=== PATIENT | male | born 1980 | race Caucasian/White ===

== ENCOUNTER 2017-04-15 02:20 | Inpatient (IN) | payer OTHER ==
[2017-04-15] MEDS ORDERED: OLANZapine DISINTEGR 5 MG TAB PO ONE (02:33)
--- NOTE | 2017-04-15 02:37 | EDPHY ---
H & P Source: Patient, Police HPI/ROS: HPI CHIEF COMPLAINT: Abigail, acute psychosis, M1 hold by police HISTORY OF PRESENT ILLNESS: This patient 36-year-old male significant past medical history for depression, on Zoloft, questionable history of bipolar, presents emergency room on M1 hold by police. The police were called to his residence multiple times they believe 4 times this evening for various calls. Girlfriend called 911 multiple times as he has been acting erratically with pressured speech and per the girlfriend spending large amounts of money applying random plane tickets. Upon arrival here the patient is hyper zoroastrian. He speaking with pressured speech and very fast. He states Love to all. He does not want hurt himself or anybody else. He admits to smoking cigarettes today as well as having 2 beers. Otherwise denies any other ingestions. Or drugs. Past Medical History: Depression Past Surgical History: No recent surgery Social History: Tobacco use, occasional alcohol use Family History: Noncontributory ROS REVIEW OF SYSTEMS: A comprehensive 10 point review of systems is otherwise negative aside from elements mentioned in the history of present illness. Exam Constitutional triage nursing summary reviewed, vital signs reviewed, awake/ alert. Eyes normal conjunctivae and sclera, EOMI, PERRLA. HENT normal inspection, atraumatic, moist mucus membranes, no epistaxis, neck supple/ no meningismus, no raccoon eyes. Respiratory clear to auscultation bilaterally, normal breath sounds, no respiratory distress, no wheezing. Cardiovascular rate normal, regular rhythm, no murmur, no edema, distal pulses normal. Gastrointestinal soft, non-tender, no rebound, no guarding, normal bowel sounds, no distension, no pulsatile mass. Genitourinary no CVA tenderness. Musculoskeletal no midline vertebral tenderness, full range of motion, no calf swelling, no tenderness of extremities, no meningismus, good pulses, neurovascularly intact. Skin pink, warm, & dry, no rash, skin atraumatic. Neurologic awake, alert and oriented x 3, AAOx3, moves all 4 extremities equally, motor intact, sensory intact, CN II-XII intact, normal cerebellar, normal vision, normal speech. Psychiatric acutely psychotic, pressured speech, grandiose, happy. Heme/Lymph/Immune no lymphadenopathy. Differential Diagnosis: Includes but is not limited to in a particular order acute psychosis, abigail, drug intoxication Medical Decision Making: Plan for this patient blood draw for medical clearance , oral Zyprexa 5 mg, will need mental health evaluation. Patient placed on M1 hold by police. Re-evaluation: (Richard Johnson) Constitutional: Initial Vital Signs Temperature (C) 36.8 C 04/15/17 02:25 Heart Rate 80 04/15/17 02:25 Respiratory Rate 18 04/15/17 02:25 Blood Pressure 140/78 H 04/15/17 02:25 O2 Sat (%) 95 04/15/17 02:25 O2 Delivery Mode Room Air Allergies/Adverse Reactions: Penicillins Allergy (Verified 04/15/17 02:59) Home Medications: Medication Instructions Recorded Sertraline HCl [Zoloft 25mg (*)] 25 mg PO DAILY 04/15/17 Medical Decision Making ED Course/Re-evaluation: 8:00 a.m. the patient has been evaluated by Mental Health. He has been accepted at [address] [place] [address] they would like to give him Zyprexa and Ativan in order to attempt to stabilize him so that he can be transferred there. (Juan Dorado) - Data Points Laboratory Results: Laboratory Results 04/15/17 02:45 04/15/17 02:45 Medications Given: Olanzapine (Zyprexa Zydis) 10 mg PO HS KARIN Stop: 10/12/17 20:59 Last Admin: 04/15/17 20:42 Dose: Not Given Discontinued Medications Haloperidol Lactate (Haldol Injection) 10 mg IVP EDNOW ONE Stop: 04/15/17 12:50 Last Admin: 04/15/17 13:05 Dose: Not Given Lorazepam (Ativan) 2 mg PO EDNOW ONE Stop: 04/15/17 08:30 Last Admin: 04/15/17 08:34 Dose: 2 mg Olanzapine (Zyprexa Zydis) 5 mg PO EDNOW ONE Stop: 04/15/17 02:34 Last Admin: 04/15/17 07:37 Dose: 5 mg Departure - Departure Disposition: [facility] IP Clinical Impression: Manic behavior Condition: Fair
[2017-04-15 02:57] LABS: % IMMATURE GRANULYOCYTES 0.4 % (0.0-1.1); ABSOLUTE IMMATURE GRANULOCYTES 0.03 10^3/uL (0.00-0.10); ADD DIFF? NO; ADD MORPH? NO; ADD SCAN? NO; ATYPICAL LYMPHOCYTE FLAG 10 (0-99); FRAGMENT RBC FLAG 0 (0-99); HEMATOCRIT 43.1 % (40.0-51.0); LEFT SHIFT FLG 0 (0-99); LIPEMIA HEMOLYSIS FLAG 90 (0-99); MEAN CELL HEMOGLOBIN 31.8 pg (27.9-34.1); MEAN CELL HEMOGLOBIN CONCENTR. 34.8 g/dL (32.4-36.7); MEAN CELL VOLUME 91.3 fL (81.5-99.8); MEAN PLATELET VOLUME 11.3 fL (8.7-11.7); PLATELET CLUMPS FLAG 0 (0-99); PLATELET COUNT 237 10^3/uL (150-400); RED BLOOD CELL COUNT 4.72 10^6/uL (4.40-6.38)
[2017-04-15 03:13] LABS: ANION GAP 15 mEq/L (8-16); CALCIUM 9.7 mg/dL (8.5-10.4); CARBON DIOXIDE 22 mEq/l (22-31); CHLORIDE 106 mEq/L (97-110); CREATININE 0.8 mg/dL (0.7-1.3); ETHANOL SERUM < 10 mg/dL (0-10); GLOMERULAR FILTRATION RATE > 60; GLUCOSE 100 mg/dL (70-100); POTASSIUM 3.9 mEq/L (3.5-5.2); SALICYLATE < 1.0 mg/dL (2.0-20.0); SODIUM 143 mEq/L (134-144)
[2017-04-15] MEDS ORDERED: OLANZapine DISINTEGR 5 MG TAB ONE (07:26)
[2017-04-15] MEDS ORDERED: LORazepam 1 MG TAB PO ONE (08:29)
[2017-04-15] MEDS ORDERED: HALOPERIDOL LACT 5 MG/ML INJ IVP ONE (12:49)
[2017-04-15] MEDS ORDERED: NICOTINE POLACRILEX 2 MG GUM B PRN (16:23)
[2017-04-15] MEDS ORDERED: MAG HYDROX/AL HYDROX/SIMETH 30 ML UDCUP PO PRN (16:23)
[2017-04-15] MEDS: OLANZapine DISINTEGR 10 MG TAB PO SCH (20:42)
--- NOTE | 2017-04-16 14:18 | BCON ---
[f rep st] BEHAVIORAL HEALTH CONSULTATION INTERNAL MEDICINE CONSULTATION DATE OF CONSULTATION: 04/16/2017 REFERRING PHYSICIAN: Saulo Bahena MD REASON FOR REFERRAL: Medical clearance for inpatient behavioral health stay. HISTORY OF PRESENT ILLNESS: This patient was brought to the [facility] Emergency Department by police on an M1 hold. His girlfriend had called 911 multiple times, reporting that he had been acting erratically with pressured speech and spending large amounts of money. In the emergency room, he was found to have hyperreligious thought content and pressured speech. He was evaluated by the mental health team and admitted for further psychiatric care. He is currently without acute complaints. He wants me to speak to his lightout examiner before examining him, and ultimately declines the examination. PAST MEDICAL HISTORY: 1. Depression. 2. Right rotator cuff surgery. 3. Left shoulder labral tear. MEDICATIONS: He was prescribed sertraline. ALLERGIES: Listed to penicillin. SOCIAL HISTORY: He lives with his girlfriend. He is a nonsmoker. He uses alcohol. His urine tox screen was positive for marijuana. FAMILY HISTORY: Cocaine abuse in his sister. REVIEW OF SYSTEMS: Very limited. He denied any acute medical concerns. PHYSICAL EXAM: Very limited. VITAL SIGNS: Blood pressure is 123/69, heart rate is 74, respiratory rate is 16, oxygen saturation is 97% on room air, temperature is 36.7 degrees centigrade. His weight is 77.1 kg, for a body mass index of 22.4. GENERAL: This is a well-nourished, well-developed man, appears his chronologic age, sitting cross-legged on the bed, minimally cooperative, in no acute distress. HEENT: Extraocular movements are intact. Mucous membranes are moist. NECK: Supple. CARDIOVASCULAR: Could not be conducted. RESPIRATORY: He is not tachypneic. He is not coughing. He is not using any accessory muscles. ABDOMEN: Could not be conducted. EXTREMITIES: There is no obvious cyanosis, clubbing, or edema. NEUROLOGIC: Orientation could not be determined. Cranial nerves 2-12 are grossly intact. He moves all extremities and he has a normal gait. He has psychomotor agitation. LABORATORY STUDIES: Drawn in the emergency department, CBC was overall within normal limits. He had a relative decrement of eosinophils and basophils of no clinical significance. Serum chemistry revealed completely normal renal function and electrolytes. Toxicology screen in the serum was negative for salicylates, acetaminophen and ethyl alcohol. In the urine, it was non- negative for marijuana but was otherwise negative for substances of abuse. ASSESSMENT/RECOMMENDATIONS: 1. Mental health issues pending further evaluation and management per Psychiatry and the mental health team. 2. Grossly normal exam, uncooperative with any more detailed examination. I see no medical contraindications to this patient's continued stay on the inpatient behavioral health unit or to any psychiatric medications or procedures. Thank you very much for including me in the care of this patient, and please do not hesitate to contact me should there be need for any further medical evaluation, which may be more possible to do after psychiatric stabilization. /[id number]/MODL MTDD
[2017-04-16] MEDS: OLANZapine DISINTEGR 10 MG TAB PO SCH (21:24)
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
[2017-04-17] MEDS ORDERED: OLANZapine 10 MG/2 ML VIAL IM PRN (14:38)
[2017-04-17] MEDS ORDERED: LORazepam 2 MG/ML INJ IM PRN (14:38)
--- NOTE | 2017-04-17 15:03 | SOAPPROG ---
SOAP Progress Note Assessment/Plan: Assessment: Plan: 04/17/17 15:05 Remains manic, psychotic, threatening. Unable to safely curb agitation with verbal redirection and show of force. Attempts by family to calm pt led to escalation based on extreme irritability and paranoia. Proceeded with [facility]. Will monitor. [facility] and COM letter completed, sent. Subjective: Pt seen, discussed with staff. Events of last night reviewed inc: pt ordering $ 200 worth of pizza and not being able to pay for it as his card was declined. He insists today that "I was just doing that to buy off the staff so they won't hate me any more." I tried to discuss the impulsive and irrational nature of these behaviors and thoughts, but pt is unable to listen, talking over me consistently. I then tried to discuss pt's treatment plan including medication treatment with Zyprexa to address his acute abigail. He becomes enraged stating, "You're just saying that because I'm a Hinduism." Denies any mental illness and refuses to consider mediations. I then tried to review the STC process with him and told him I would seek COM. He refused to participate in this discussion and shouted over me telling me I would go to halfway if I gave him any meds. I reiterated to him that we would only give him medications against his will if could not conform his behaviors safely. I then worked with staff to create a phone restriction due to PCP calling repeatedly to tell us that pt was calling their office and threatening people there. Collateral information obtained from sisters and GF who attempted to visit pt but were verbally attacked by him and ordered to leave the unit. He states to me and loudly to all that he believes they are trying to harm him and control him and that they don't love him. They tell me that this is very unusual for him to behave this way. They state that he has never acted like this before. His sister who lives in [place] reports that pt visited her two weeks ago and "was not himself." She states he was labile and angry and that she has never seem him display anger before. GF states she noted a major escalation when pt increased sertraline to 50mg. She states this made him more erratic and more irritable. He refused to stop it, however, stating he believed it helped him. Pt told me today that I am "committing a hate crime" by not giving him the sertraline. He placed a chair outside my office this morning and began yelling through my door that he wanted to meet with me despite me having told him I would meet with him at 1030. He began swearing and calling me "Dr. Pitts." This continued until security was able to redirect him to his room. I then met with him as scheduled and he was very agitated, swearing and threatening to rohan me. Continued to accuse me of committing a hate crime against him because he was Oriental Orthodox and "I know you're just a controlling Islam." He repeated the statement that "You sent a Hinduism in to see me who wasn't compassionate. How dare you!" many times. Later in the afternoon he continued to escalate, threatening staff and disrupting the milieu. Other patients began to get agitated as well, necessitating E-meds. Objective: Vital Signs Temp Pulse Resp BP Pulse Ox 36.7 C 74 16 123/69 H 97 04/15/17 13:33 04/15/17 13:33 04/15/17 13:33 04/15/17 13:33 04/15/17 13:33 MSE: Marginally groomed, agitated, angry. Shouting, swearing, calling me and staff names. Threatening to rohan over any interaction. Makes several abrupt lurches towards me when I was sitting in his room trying to conduct an interview causing me to terminate contact due to fear of assault. Security called to monitor. Affect is angry, labile. Mood is "terrible." TP tangential , perseverative on persecutory themes. TC reveals grandiose and paranoid thoughts. - Time Spent With Patient Time Spent With Patient: 55" ICD10 Worksheet Patient Problems: Problems Problem Status Onset Manic behavior Acute
[2017-04-17] MEDS: OLANZapine DISINTEGR 10 MG TAB PO PRN (15:38)
[2017-04-17] MEDS: LORazepam 1 MG TAB PO PRN (15:39)
[2017-04-17] MEDS: OLANZapine DISINTEGR 10 MG TAB PO SCH (21:51)
[2017-04-18] MEDS ORDERED: fentaNYL 100 MCG/2 ML INJ ONE (10:06)
[2017-04-18] MEDS ORDERED: MIDAZOLAM 2 MG/2 ML VIAL ONE (10:06)
[2017-04-18] MEDS: OLANZapine DISINTEGR 10 MG TAB PO PRN (10:43)
[2017-04-18] MEDS: LORazepam 1 MG TAB PO PRN (10:43)
--- NOTE | 2017-04-18 14:38 | SOAPPROG ---
SOAP Progress Note Assessment/Plan: Assessment: Plan: 04/17/17 15:05 Remains manic, psychotic, threatening. Unable to safely curb agitation with verbal redirection and show of force. Attempts by family to calm pt led to escalation based on extreme irritability and paranoia. Proceeded with [facility]. Will monitor. [facility] and COM letter completed, sent. 04/18/17 15:06 Remains manic, psychotic, disruptive, threatening. Will continue to offer voluntary meds. COM letter sent. Will employ E-meds as needed. His overall level of disruption presents an ongoing risk to himself and others and may require emergency intervention of the milieu continues to escalate based on his behaviors. Subjective: Pt seen, discussed with staff. Email received from pt's sister Tess requesting FMLA be completed. Pt remains agitated, labile, intrusive, profane, insulting, disruptive and inciting of other patients. He has elevated the level of negative emotion in the milieu to a potentially dangerous level and at least two other patients have demonstrated disregulated and aggressive behaviors because of this. He continues to lack any insight into his illness. He perseverates on persecutory themes. Continues to accost me, yelling insulting names down the collier. Stood outside the door to our treatment planning room shouting insults until he was redirected. Stood within six inches of my face in the hallway stating, "Go ahead and touch me, I'll put you in correction." Objective: Vital Signs Temp Pulse Resp BP Pulse Ox 36.4 C 110 H 14 155/68 H 96 04/18/17 06:00 04/18/17 06:00 04/18/17 06:00 04/18/17 06:00 04/18/17 06:00 MSE: Agitated, pressured, intrusive, uncooperative. Affect is irritable, labile, crying at times, laughing at others, raging at others (predominant.) Mood is "terrible." TP tangential, unable to stay on topic of conversation for any meaningful length of time. TC reveals continued persecutory delusions. Continues to place others including myself in reasonable fear of harm. - Time Spent With Patient Time Spent With Patient: 25" ICD10 Worksheet Patient Problems: Problems Problem Status Onset Manic behavior Acute
[2017-04-18] MEDS: OLANZapine DISINTEGR 10 MG TAB PO SCH (21:04)
[2017-04-18] MEDS: ACETAMINOPHEN 325 MG TAB PO PRN (22:07)
[2017-04-19] MEDS: OLANZapine DISINTEGR 10 MG TAB PO PRN (09:28)
[2017-04-19] MEDS: LORazepam 1 MG TAB PO PRN ×2 (10:48→23:11)
[2017-04-19] MEDS ORDERED: OLANZapine 10 MG/2 ML VIAL IM PRN (11:21)
[2017-04-19] MEDS ORDERED: OLANZapine DISINTEGR 10 MG TAB PO ONE (11:23)
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
[2017-04-19] MEDS: OLANZapine DISINTEGR 10 MG TAB PO SCH (20:58)
[2017-04-20] MEDS: OLANZapine DISINTEGR 10 MG TAB PO PRN ×2 (07:57→11:38)
[2017-04-20] MEDS: LORazepam 1 MG TAB PO PRN ×2 (07:59→11:37)
[2017-04-20] MEDS: OLANZapine DISINTEGR 10 MG TAB PO SCH (19:42)
[2017-04-20] MEDS ORDERED: BACITRACIN OINTMENT 1 PACKET TP ONE (19:56)
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
[2017-04-20] MEDS: ACETAMINOPHEN 325 MG TAB PO PRN (20:53)
[2017-04-21] MEDS: OLANZapine DISINTEGR 10 MG TAB PO PRN (05:54)
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
--- NOTE | 2017-04-21 14:15 | SOAPPROG ---
SOAP Progress Note Assessment/Plan: Assessment: * Risk for STD. Urine and serum tests have been ordered appropriately. Will add HSV 1 & 2 antibody testing as patient is concerned re Herpes as well. * Foot pain. R foot XR has been done, wnl. Currently complains of L footpain but has normal gait. Observe for worsening, or resolution as his psychiatric state stabilizes. No further evaluation at present. 04/21/17 14:13 Subjective: Follow-up on R foot pain. Patient also c/o skin lesion on scrotum and is worried about syphilis. Objective: Vital Signs Temp Pulse Resp BP Pulse Ox 36.6 C 101 H 16 133/74 H 95 04/21/17 06:00 04/21/17 06:00 04/21/17 06:00 04/21/17 06:00 04/21/17 06:00 Physical Exam - Physical Exam General Appearance: WD/WN, alert, no apparent distress Male Genitalia: other (Scrotal skin w/out lesions) Extremities: other (Distal superior/lateral 1st metatarsal on L foot TTP. No tenderness with movement at MTP joint. No erytehma or swelling.), No pedal edema, No swelling Neuro/Psych: other (Normal gait with no signs of foot pain while walking.) ICD10 Worksheet Patient Problems: Problems Problem Status Onset Manic behavior Acute
[2017-04-21] MEDS: OLANZapine DISINTEGR 10 MG TAB PO SCH (21:30)
[2017-04-22 12:14] LABS: CHLAMYDIA AMPLIFICATION GENPRB NEGATIVE (NEGATIVE)
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
[2017-04-22] MEDS: ACETAMINOPHEN 325 MG TAB PO PRN ×2 (16:25→21:05)
[2017-04-22] MEDS: OLANZapine DISINTEGR 10 MG TAB PO SCH (20:38)
[2017-04-23] MEDS: ACETAMINOPHEN 325 MG TAB PO PRN ×2 (07:51→18:21)
[2017-04-23] MEDS: OLANZapine DISINTEGR 10 MG TAB PO PRN ×2 (10:01→16:55)
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
[2017-04-23] MEDS: OLANZapine DISINTEGR 10 MG TAB PO SCH ×2 (20:11→20:38)
[2017-04-24] MEDS: ACETAMINOPHEN 325 MG TAB PO PRN ×2 (06:53→22:53)
[2017-04-24] MEDS: OLANZapine DISINTEGR 10 MG TAB PO PRN (11:58)
[2017-04-24 13:45] LABS: HSV 1/2 IGM AB Negative (Negative); HSV1 IGG ANTIBODY Negative (Negative); HSV2 IGG ANTIBODY Negative (Negative)
[2017-04-24] MEDS: MAGNESIUM HYDROXIDE 30 ML UDCUP PO PRN (15:51)
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
[2017-04-24] MEDS: OLANZapine DISINTEGR 10 MG TAB PO SCH (20:25)
[2017-04-24] MEDS: LORazepam 1 MG TAB PO PRN (23:52)
[2017-04-25] MEDS: ACETAMINOPHEN 325 MG TAB PO PRN ×2 (08:01→16:50)
[2017-04-25] MEDS: OLANZapine DISINTEGR 10 MG TAB PO PRN ×2 (10:05→15:43)
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
[2017-04-25] MEDS: LORazepam 1 MG TAB PO PRN (18:48)
[2017-04-25] MEDS: OLANZapine DISINTEGR 10 MG TAB PO SCH (18:53)
[2017-04-26] MEDS: ACETAMINOPHEN 325 MG TAB PO PRN ×2 (04:34→15:13)
[2017-04-26] MEDS: OLANZapine DISINTEGR 10 MG TAB PO PRN ×2 (07:53→12:07)
--- NOTE | 2017-04-26 14:42 | SOAPPROG ---
SOAP Progress Note Assessment/Plan: Assessment: Per Dr. Bhaena's notes: 04/21/17 11:42 Much improved with Zyprexa. Will d/c 1:1 as pt does not appear to need this level of supervision despite continued paranoia and impulsivity. Will also allow pt to have visitors and talk with family by phone. 04/23/17 14:18 Volatile course continues. In reasonable behavioral control at this time. Will [facility], increase Zyprexa to 15mg at HS, monitor. I will not complete/submit disability forms against patient's specific objection. 04/24/17 17:14 Continued gradual improvement. CCM. Will cancel COM hearing as pt remains voluntarily compliant with meds. 04/25/17 13:02 Angry today after attempting to force d/c. Will [facility]. I have told pt I will reassess him for d/c on Friday. 04/26/17 14:39 Plan: 1. CCM 2. Patient has been intrusive and violating boundaries with other patients. CC and MD reminded patient about boundaries and appropriate behavior. 3. Patient eagerly waiting for d/c, but not angry or hostile today. Subjective: Met with patient and discussed with staff. Patient was intrusive with peers, giving them advice about taking meds and hugging peer who was discharging. MD and CC reminded patient to respect boundaries and behave appropriately. He agreed. Objective: Vital Signs Temp Pulse Resp BP Pulse Ox 36.3 C 72 14 122/66 H 96 04/26/17 06:49 04/26/17 06:49 04/26/17 06:49 04/26/17 06:49 04/26/17 06:49 MSE: Pleasant, overly friendly, intrusive. Affect: Elevated Mood: "Good" TP: Disorganized, tangential TC: Denies any SI/HI, no AH/VH Insight/Judgment: Poor - Time Spent With Patient Time Spent With Patient: 15" - Pending Discharge Pending Discharge Within 24 Hours: No Pending Discharge Within 48 Hours: Yes Pending Discharge Date: 04/28/17 (Possible d/c on Friday) Pending Discharge Time: 11:00 ICD10 Worksheet Patient Problems: Problems Problem Status Onset Manic behavior Acute
[2017-04-26] MEDS: OLANZapine DISINTEGR 10 MG TAB PO SCH (17:30)
[2017-04-26] MEDS: LORazepam 1 MG TAB PO PRN (20:12)
[2017-04-27] MEDS: OLANZapine DISINTEGR 10 MG TAB PO PRN ×2 (07:05→11:58)
[2017-04-27] MEDS: ACETAMINOPHEN 325 MG TAB PO PRN (07:05)
--- NOTE | 2017-04-27 13:39 | SOAPPROG ---
SOAP Progress Note Assessment/Plan: Assessment: Per Dr. Bahena's notes: 04/21/17 11:42 Much improved with Zyprexa. Will d/c 1:1 as pt does not appear to need this level of supervision despite continued paranoia and impulsivity. Will also allow pt to have visitors and talk with family by phone. 04/23/17 14:18 Volatile course continues. In reasonable behavioral control at this time. Will [facility], increase Zyprexa to 15mg at HS, monitor. I will not complete/submit disability forms against patient's specific objection. 04/24/17 17:14 Continued gradual improvement. CCM. Will cancel COM hearing as pt remains voluntarily compliant with meds. 04/25/17 13:02 Angry today after attempting to force d/c. Will CCM. I have told pt I will reassess him for d/c on Friday. 04/26/17 14:39 Plan: 1. CCM 2. Patient has been intrusive and violating boundaries with other patients. CC and MD reminded patient about boundaries and appropriate behavior. 3. Patient eagerly waiting for d/c, but not angry or hostile today. 04/27/17 13:36 1. Patient remains intrusive and impulsive, but has improved significantly since admission. Needs redirection by staff when he is intrusive with peers. However, no inappropriate behaviors. 2. CCM - patient stable over weekend Subjective: Met with patient and discussed with staff. Patient monopolizes conversation around his peers in group. He wants to give MD a picture he liyah of the "Incredible Hulk." He says he's feeling "fine" and doesn't want anything changed with his meds. He denies any SI/HI. Objective: Vital Signs Temp Pulse Resp BP Pulse Ox 36.4 C 70 16 124/69 H 98 04/27/17 06:00 04/27/17 06:00 04/27/17 06:00 04/27/17 06:00 04/27/17 06:00 MSE: Talkative, but able to interrupt. Affect: Elevated Mood: "OK" TP: Tangential TC: Denies any SI/HI, no AH/VH Insight/Judgment: Poor - Time Spent With Patient Time Spent With Patient: 15" - Pending Discharge Pending Discharge Within 24 Hours: No Pending Discharge Within 48 Hours: Yes Pending Discharge Date: 04/29/17 (Likely to d/c Fri or Fri) Pending Discharge Time: 11:00 ICD10 Worksheet Patient Problems: Problems Problem Status Onset Manic behavior Acute
[2017-04-27] MEDS: OLANZapine DISINTEGR 10 MG TAB PO SCH (18:34)
[2017-04-27] MEDS: LORazepam 1 MG TAB PO PRN (19:11)
[2017-04-28] MEDS: ACETAMINOPHEN 325 MG TAB PO PRN (06:26)
[2017-04-28] MEDS: OLANZapine DISINTEGR 10 MG TAB PO PRN ×2 (06:26→12:09)
[2017-04-28] MEDS: LORazepam 1 MG TAB PO PRN ×2 (14:11→20:44)
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
[2017-04-28] MEDS: OLANZapine DISINTEGR 10 MG TAB PO SCH (18:29)
[2017-04-29] MEDS: ACETAMINOPHEN 325 MG TAB PO PRN ×3 (05:04→16:33)
[2017-04-29] MEDS: LORazepam 1 MG TAB PO PRN ×2 (06:30→16:33)
[2017-04-29] MEDS: OLANZapine DISINTEGR 10 MG TAB PO PRN ×3 (08:39→19:39)
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
[2017-04-29] MEDS: OLANZapine DISINTEGR 10 MG TAB PO SCH (21:53)
[2017-04-30] MEDS: ACETAMINOPHEN 325 MG TAB PO PRN (05:41)
[2017-04-30] MEDS: OLANZapine DISINTEGR 10 MG TAB PO PRN (05:41)
[2017-04-30] MEDS: LORazepam 1 MG TAB PO PRN ×2 (15:04→21:42)
[2017-04-30] MEDS ORDERED: FLU VACC QS 2017-18 (3YR+)/PF 0.5 ML SYR (FLUARIX QUAD) IM ONE (16:00)
[2017-04-30] MEDS: OLANZapine DISINTEGR 10 MG TAB PO SCH (17:05)
[2017-05-01] MEDS: ACETAMINOPHEN 325 MG TAB PO PRN (06:35)
[2017-05-01] MEDS: OLANZapine DISINTEGR 10 MG TAB PO PRN ×2 (06:35→12:09)
[2017-05-01 06:42] VITALS: RESP 14; O2SAT 97
[2017-05-01] MEDS: MAGNESIUM HYDROXIDE 30 ML UDCUP PO PRN (06:46)
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
[2017-05-01] MEDS: LORazepam 1 MG TAB PO PRN (17:07)
[2017-05-01] MEDS: OLANZapine DISINTEGR 10 MG TAB PO SCH (17:07)
[2017-05-02] MEDS: LORazepam 1 MG TAB PO PRN (01:27)
[2017-05-02] MEDS: MAGNESIUM HYDROXIDE 30 ML UDCUP PO PRN (01:52)
[2017-05-02] MEDS: ACETAMINOPHEN 325 MG TAB PO PRN (06:06)
[2017-05-02 06:48] VITALS: BP 119/62; PULSE 82; TEMP 97.2
[2017-05-02] MEDS: OLANZapine DISINTEGR 10 MG TAB PO PRN (10:41)
== END 2017-05-02 15:45 | disposition home or self-care (01) | DRG 885 ==
LOC: BBEH 13:20
PROVIDERS: ADMIT Psychiatry & Neurology Psychiatry; ATTEND Psychiatry & Neurology Psychiatry
DX: F31.2 Bipolar disorder, current episode manic severe with psychotic features (principal); Z23 Encounter for immunization
CPT/HCPCS: 80305; 86694-90; G0008; G0480; J2060; J2250; J3010

== ENCOUNTER 2017-04-18 23:51 | Emergency (ER) | payer OTHER ==
[2017-04-18] MEDS ORDERED: NS 1,000 ML IV ONE (23:53)
[2017-04-18] MEDS ORDERED: OLANZapine 10 MG/2 ML VIAL IM ONE (23:54)
--- NOTE | 2017-04-18 23:57 | EDPHY ---
H & P HPI/ROS: HPI CHIEF COMPLAINT: Abdominal pain HISTORY OF PRESENT ILLNESS: This patient is a 36-year-old male who is currently over at [address] [place] [address] psychiatric facility for acute psychosis and abigail. He presents emergency room by EMS for abdominal pain. He states shortly earlier this evening started developing diffuse abdominal pain mainly left upper quadrant. He has not any vomiting diarrhea or fever. Denies chest pain shortness of breath. He describes abdominal pain sharp stabbing. Past Medical History: Acute abigail Past Surgical History: No recent surgery Social History: Denies daily use drugs alcohol tobacco products. Currently at [address] [place] [address]. Family History: Noncontributory ROS REVIEW OF SYSTEMS: A comprehensive 10 point review of systems is otherwise negative aside from elements mentioned in the history of present illness. Exam Constitutional appears well nontoxic triage nursing summary reviewed, vital signs reviewed, awake/alert. Eyes normal conjunctivae and sclera, EOMI, PERRLA. HENT normal inspection, atraumatic, moist mucus membranes, no epistaxis, neck supple/ no meningismus, no raccoon eyes. Respiratory clear to auscultation bilaterally, normal breath sounds, no respiratory distress, no wheezing. Cardiovascular rate normal, regular rhythm, no murmur, no edema, distal pulses normal. Gastrointestinal soft, non-tender, no rebound, no guarding, normal bowel sounds, no distension, no pulsatile mass. Genitourinary no CVA tenderness. Musculoskeletal no midline vertebral tenderness, full range of motion, no calf swelling, no tenderness of extremities, no meningismus, good pulses, neurovascularly intact. Skin pink, warm, & dry, no rash, skin atraumatic. Neurologic awake, alert and oriented x 3, AAOx3, moves all 4 extremities equally, motor intact, sensory intact, CN II-XII intact, normal cerebellar, normal vision, normal speech. Psychiatric pressured speech, psychotic, agitated Heme/Lymph/Immune no lymphadenopathy. Differential diagnosis includes but is not limited to and in no particular order : Bowel obstruction, appendicitis, gallbladder disease, diverticulitis, colitis , enteritis, perforated viscus, gastritis, GERD, esophagitis, urinary tract infection, pyelonephritis, kidney stones Medical Decision Making: Plan for this patient IV establishment with IV fluid bolus, CT scan abdomen pelvis with IV contrast rule out acute intra-abdominal pathology. Check blood work. Abdominal labs. Re-evaluation: CT scan of the abdomen pelvis with IV contrast The results of the study are negative for acute disease process The study was read by Dr. Hobson I viewed the images myself on the PACS system. Source: Patient, EMS - Medical/Surgical History Hx Asthma: No Hx Chronic Respiratory Disease: No Hx Diabetes: No Hx Cardiac Disease: No Hx Renal Disease: No Hx Cirrhosis: No Hx Alcoholism: No Hx HIV/AIDS: No Hx Splenectomy or Spleen Trauma: No Other PMH: depression. bipolar?? - Social History Smoking Status: Never smoked Constitutional: Initial Vital Signs Temperature (C) 37.1 C 04/18/17 23:53 Heart Rate 80 04/18/17 23:53 Respiratory Rate 18 04/18/17 23:53 Blood Pressure 136/96 H 04/18/17 23:53 O2 Sat (%) 94 04/18/17 23:53 O2 Delivery Mode Room Air Allergies/Adverse Reactions: Penicillins Allergy (Verified 04/15/17 02:59) Home Medications: Medication Instructions Recorded Sertraline HCl [Zoloft 25mg (*)] 25 mg PO DAILY 04/15/17 Medical Decision Making - Data Points Laboratory Results: Laboratory Results 04/19/17 00:00 04/19/17 00:00 04/19/17 04/19/17 04/19/17 00:36 00:00 00:00 WBC 7.90 10^3/uL 10^3/uL (3.80-9.50) RBC 4.62 10^6/uL 10^6/uL (4.40-6.38) Hgb 14.7 g/dL g/dL (13.7-17.5) Hct 42.3 % % (40.0-51.0) MCV 91.6 fL fL (81.5-99.8) MCH 31.8 pg pg (27.9-34.1) MCHC 34.8 g/dL g/dL (32.4-36.7) RDW 13.0 % % (11.5-15.2) Plt Count 232 10^3/uL 10^3/uL (150-400) MPV 11.5 fL fL (8.7-11.7) Neut % (Auto) 55.0 % % (39.3-74.2) Lymph % (Auto) 34.2 % % (15.0-45.0) [place] % (Auto) 8.1 % % (4.5-13.0) Eos % (Auto) 1.8 % % (0.6-7.6) Baso % (Auto) 0.5 % % (0.3-1.7) Nucleat RBC Rel Count 0.0 % % (0.0-0.2) Absolute Neuts (auto) 4.35 10^3/uL 10^3/uL (1.70-6.50) Absolute Lymphs (auto) 2.70 10^3/uL 10^3/uL (1.00-3.00) Absolute Monos (auto) 0.64 10^3/uL 10^3/uL (0.30-0.80) Absolute Eos (auto) 0.14 10^3/uL 10^3/uL (0.03-0.40) Absolute Basos (auto) 0.04 10^3/uL 10^3/uL (0.02-0.10) Absolute Nucleated RBC 0.00 10^3/uL 10^3/uL (0-0.01) Immature Gran % 0.4 % % (0.0-1.1) Immature Gran # 0.03 10^3/uL 10^3/uL (0.00-0.10) Sodium 139 mEq/L mEq/L (134-144) Potassium 4.5 mEq/L mEq/L (3.5-5.2) Chloride 103 mEq/L mEq/L (97-110) Carbon Dioxide 23 mEq/l mEq/l (22-31) Anion Gap 13 mEq/L mEq/L (8-16) BUN 21 mg/dL mg/dL (7-23) Creatinine 1.0 mg/dL mg/dL (0.7-1.3) Estimated GFR > 60 Glucose 86 mg/dL mg/dL (70-100) Calcium 10.3 mg/dL mg/dL (8.5-10.4) Total Bilirubin 0.5 mg/dL mg/dL (0.1-1.4) Conjugated Bilirubin 0.3 mg/dL mg/dL (0.0-0.5) Unconjugated Bilirubin 0.2 mg/dL mg/dL (0.0-1.1) AST 22 IU/L IU/L (17-59) ALT 28 IU/L IU/L (21-72) Alkaline Phosphatase 78 IU/L IU/L (38-126) Total Protein 6.9 g/dL g/dL (6.3-8.2) Albumin 4.1 g/dL g/dL (3.5-5.0) Lipase 181 IU/L IU/L (23-300) Urine Color YELLOW Urine Appearance CLEAR Urine pH 7.0 (5.0-7.5) Ur Specific [place] 1.013 (1.002-1.030) Urine Protein NEGATIVE (NEGATIVE) Urine Ketones NEGATIVE (NEGATIVE) Urine Blood NEGATIVE (NEGATIVE) Urine Nitrate NEGATIVE (NEGATIVE) Urine Bilirubin NEGATIVE (NEGATIVE) Urine Urobilinogen NEGATIVE EU EU (0.2-1.0) Ur Leukocyte Esterase NEGATIVE (NEGATIVE) Urine Glucose NEGATIVE (NEGATIVE) Medications Given: Discontinued Medications Sodium Chloride (Ns) 1,000 mls @ 0 mls/hr IV EDNOW ONE; Wide Open PRN Reason: Protocol Stop: 04/18/17 23:54 Last Admin: 04/19/17 00:12 Dose: 1,000 mls Departure - Departure Disposition: [facility] IP Clinical Impression: Manic behavior Abdominal pain Qualifiers: Abdominal location: generalized Qualified Code(s): R10.84 - Generalized abdominal pain Condition: Good Instructions: Acute Abdominal Pain (ED) Additional Instructions: 1. You have been medically cleared to go back to [address] [place] [address] inpatient psychiatric hospitalization. 2. I have not found anything concerning on your CT scan or blood work for abdominal pain. Referrals: Patient,NotPresent [Unknown] - As per Instructions
[2017-04-19] MEDS ORDERED: OLANZapine DISINTEGR 10 MG TAB ONE (00:07)
[2017-04-19 00:11] LABS: % IMMATURE GRANULYOCYTES 0.4 % (0.0-1.1); ABSOLUTE IMMATURE GRANULOCYTES 0.03 10^3/uL (0.00-0.10); ADD DIFF? NO; ADD MORPH? NO; ADD SCAN? NO; ATYPICAL LYMPHOCYTE FLAG 20 (0-99); FRAGMENT RBC FLAG 0 (0-99); HEMATOCRIT 42.3 % (40.0-51.0); HEMOGLOBIN 14.7 g/dL (13.7-17.5); LEFT SHIFT FLG 0 (0-99); LIPEMIA HEMOLYSIS FLAG 90 (0-99); MEAN CELL HEMOGLOBIN 31.8 pg (27.9-34.1); MEAN CELL HEMOGLOBIN CONCENTR. 34.8 g/dL (32.4-36.7); MEAN CELL VOLUME 91.6 fL (81.5-99.8); MEAN PLATELET VOLUME 11.5 fL (8.7-11.7); PLATELET CLUMPS FLAG 10 (0-99); PLATELET COUNT 232 10^3/uL (150-400); RED BLOOD CELL COUNT 4.62 10^6/uL (4.40-6.38)
[2017-04-19 00:43] LABS: COLOR YELLOW; LEUKOCYTE ESTERASE,URINE NEGATIVE (NEGATIVE); NITRITE,URINE NEGATIVE (NEGATIVE)
[2017-04-19 00:47] LABS: ALANINE AMINOTRANSFERASE 28 IU/L (21-72); ALBUMIN 4.1 g/dL (3.5-5.0); ALKALINE PHOSPHATASE 78 IU/L (38-126); ANION GAP 13 mEq/L (8-16); ASPARTATE AMINOTRANSFERASE 22 IU/L (17-59); BILIRUBIN,TOTAL 0.5 mg/dL (0.1-1.4); BILIRUBIN-CONJUGATED 0.3 mg/dL (0.0-0.5); BILIRUBIN-UNCONJUGATED 0.2 mg/dL (0.0-1.1); CALCIUM 10.3 mg/dL (8.5-10.4); CARBON DIOXIDE 23 mEq/l (22-31); CHLORIDE 103 mEq/L (97-110); GLOMERULAR FILTRATION RATE > 60; GLUCOSE 86 mg/dL (70-100); POTASSIUM 4.5 mEq/L (3.5-5.2); SODIUM 139 mEq/L (134-144); TOTAL PROTEIN 6.9 g/dL (6.3-8.2)
[2017-04-19] MEDS ORDERED: IOPAMIDOL (ISOVUE-300) 100 ML BTL ONE ×2 (01:02)
[2017-04-19 03:20] VITALS: RESP 16; O2SAT 97
[2017-04-19 03:24] VITALS: BP 124/76; PULSE 76; TEMP 98.1
== END 2017-04-19 03:23 ==
LOC: EDUNIT#
DX: R10.84 Generalized abdominal pain (principal)
CPT/HCPCS: Q9967

== ENCOUNTER 2017-05-07 19:55 | Emergency (ER) | payer OTHER ==
[2017-05-07 20:02] VITALS: BP 137/77; PULSE 84; RESP 16; TEMP 99; O2SAT 93
[2017-05-07] MEDS ORDERED: TDAP ADULT 0.5 ML INJ (BOOSTRIX) IM ONE (20:19)
--- NOTE | 2017-05-07 20:22 | EDPHY ---
H & P Time Seen by Provider: 05/07/17 20:19 HPI/ROS: CHIEF COMPLAINT: Right 4th digit injury HISTORY OF PRESENT ILLNESS: 36-year-old male with out-of-date tetanus was reaching to gym bag, did not realize was raised with parents sustained skin avulsion to the right 4th digit distal phalanx ulnar aspect. Bleeding continues. Occurred earlier today. PHYSICAL EXAM (Prior to examination, patient consented to physical exam, hands were washed and my usual and customary physical exam procedures followed) 1) GENERAL: Well-developed, well-nourished, alert and oriented. Appears to be in no acute distress. 2) HEAD: Normocephalic 3) HEENT: sclera anicteric 4) LUNGS: Breathing comfortably. 5) SKIN: right 4th digit distal phalanx ulnar aspect 1 cm x 2 cm superficial skin avulsion with slow capillary like bleed. No signs of infection. Negative kanavel. 6) MUSCULOSKELETAL: flexion, extension at the MCP PIP D IP intact no deficits. 7) NEUROLOGIC: Full sensation Smoking Status: Never smoked Constitutional: Initial Vital Signs Temperature (C) 37.2 C 05/07/17 19:59 Heart Rate 84 05/07/17 19:59 Respiratory Rate 16 05/07/17 19:59 Blood Pressure 137/77 H 05/07/17 19:59 O2 Sat (%) 93 05/07/17 19:59 O2 Delivery Mode Room Air Allergies/Adverse Reactions: Penicillins Allergy (Verified 04/15/17 02:59) Home Medications: Medication Instructions Recorded NK [No Known Home Meds] 05/07/17 MDM/Departure - MDM Procedures: Procedure: Laceration repair. I explained the indications, risks and benefits for both laceration repair and anesthetic administration. Verbal consent was obtained from the patient . The skin avulsion on the right 4th digit was anesthetized using 0.5% bupivicaine without epinephrine digital nerve block. Surgicel placed by ER staff resulting in hemostasis. Patient tolerated procedure well. ED Course/Re-evaluation: Care of patient under supervision of secondary supervising physician Dr Norris . - Depart Disposition: Home, Routine, Self-Care Clinical Impression: Avulsion of skin of finger Qualifiers: Encounter type: initial encounter Qualified Code(s): S61.209A - Unspecified open wound of unspecified finger without damage to nail, initial encounter Condition: Good Instructions: Skin Avulsion (ED) Additional Instructions: Return to the ER if you develop redness, swelling, discharge, warmth to the wound, red streaks going up your arm , or any other symptoms that concern you. Referrals: [facility],. [Clinic] - 2-3 days without fail
== END 2017-05-07 20:48 | disposition home or self-care (01) ==
DX: S61.204A Unspecified open wound of right ring finger without damage to nail, initial encounter (principal); Z23 Encounter for immunization; W22.8XXA Striking against or struck by other objects, initial encounter; Y99.8 Other external cause status; Y93.89 Activity, other specified